=== PATIENT | male | born 1995 | race Caucasian/White ===

== ENCOUNTER 2021-03-19 16:08 | Outpatient (REF) | payer OTHER, SELFPAY ==
--- NOTE | ~2021-03-19 | XR_ITS ---
EXAMINATION: RIGHT ANKLE AND RIGHT FOOT. CLINICAL INFORMATION: Injury right foot and right ankle area. COMPARISON: None TECHNIQUE: 3 views right foot. 2 views right ankle. FINDINGS: Right ankle: There is no visible acute fracture or dislocation. The ankle mortise and subtalar joints are normal. There is mild dorsal talonavicular spurring. The soft tissues are normal. Right foot: There is no visible acute fracture, dislocation or subluxation. The soft tissues are normal. XR/XR ankle RT min 3V IMPRESSION: Unremarkable right ankle and right foot exam except for mild dorsal talonavicular spurring.
--- NOTE | ~2021-03-19 | XR_ITS ---
EXAMINATION: RIGHT ANKLE AND RIGHT FOOT. CLINICAL INFORMATION: Injury right foot and right ankle area. COMPARISON: None TECHNIQUE: 3 views right foot. 2 views right ankle. FINDINGS: Right ankle: There is no visible acute fracture or dislocation. The ankle mortise and subtalar joints are normal. There is mild dorsal talonavicular spurring. The soft tissues are normal. Right foot: There is no visible acute fracture, dislocation or subluxation. The soft tissues are normal. XR/XR foot RT min 3V IMPRESSION: Unremarkable right ankle and right foot exam except for mild dorsal talonavicular spurring.
== END 2021-03-19 16:09 | disposition home or self-care (01) ==
LOC: HO.HMGCX 16:08
PROVIDERS: Visit Provider Physician Assistant Medical
DX: S99.921A Unspecified injury of right foot, initial encounter (principal)
CPT/HCPCS: 73610; 73630

== ENCOUNTER 2021-04-03 08:43 | Outpatient (REF) | payer OTHER, SELFPAY | END 2021-04-03 08:44 | disposition home or self-care (01) | LOC: HO.HOSX 08:43 | PROVIDERS: Visit Provider Physician Assistant | DX: Z13.89 Encounter for screening for other disorder (principal) ==

== ENCOUNTER 2022-09-06 12:55 | Emergency (ER) | payer OTHER, SELFPAY ==
[2022-09-06 12:59] VITALS: BP 115/73; PULSE 64; RESP 16; O2SAT 98; BMI 32.9
--- NOTE | 2022-09-06 13:05 | ED.GENADULT ---
HPI - General Adult General Chief complaint: Wound/Laceration Stated complaint: R Finger Injury Time Seen by Provider: 09/06/22 12:57 Source: patient Mode of arrival: ambulatory Limitations: no limitations History of Present Illness HPI narrative: Patient is a 26 year old assigned male at with no reported medical history presenting to the emergency department today with a right index finger laceration. Patient states that he was golfing when his club broke and cut his right index finger. Patient states that he does not know when his last tetanus shot was. Patient denies any dizziness, lightheadedness, abdominal pain, nausea, vomiting, fever, chills, blurry vision, double vision, loss of vision, chest pain, difficulty breathing, shortness of breath, back pain, night sweats, pain with urination, increased urinary frequency, increased urinary urgency, blood in his urine or stool, syncope or a near syncopal episode, bowel incontinence, bladder incontinence, bowel retention, bladder retention, or any other complaints at this time. Onset (ago): minute(s) Location: right and upper extremity Radiation: non-radiation Severity: mild Severity scale (1-10): 3 Relieving factors: none Exacerbating factors: none Associated symptoms: denies other symptoms Treatments prior to arrival: none Related Data Previous Rx's Medication Instructions Recorded cephalexin 500 mg capsule 500 mg PO Q6H 7 days #28 caps 09/06/22 Allergies Allergy/AdvReac Type Severity Reaction Status Date / Time No Known Allergies Allergy Verified 03/19/21 15:46 Review of Systems Constitutional: Constitutional: Reports no additional constitutional complaints, Denies chills, Denies fever(s) and Denies night sweats Eyes: Eyes: Reports no additional eye complaints, Denies blurry vision, Denies change in vision, Denies diplopia, Denies eye discharge, Denies loss of vision and Denies eye pain ENT: Denies dizziness Cardiovascular: Cardiovascular: Reports no additional cardiovascular complaints, Denies chest pain, Denies lightheadedness, Denies Loss of Consciousness and Denies dyspnea Respiratory: Respiratory: Reports no additional respiratory complaints and Denies dyspnea Gastrointestinal: Gastrointestinal: Reports no additional gastrointestinal complaints, Denies abdominal pain, Denies melena, Denies hematochezia, Denies change in bowel habits and Denies change in stool character Genitourinary: Genitourinary: Reports no additional male genitourinary complaints, Denies hematuria, Denies oliguria, Denies difficulty urinating, Denies dysuria, Denies urinary frequency, Denies urinary hesitancy, Denies urinary incontinence and Denies urinary urgency Musculoskeletal: Musculoskeletal: Reports no additional musculoskeletal complaints, Denies numbness and Denies tingling Integumentary/Breasts: Comments: right index finger laceration Neurologic: Denies dizziness, Denies loss of vision, Denies numbness and Denies tingling Psychiatric: Psychiatric: Reports no additional psychiatric complaints Endocrine: Endocrine: Reports no additional endocrine complaints Hematologic/Lymphatic: Hematologic/Lymphatic: Reports no additional hematologic/lymphatic complaints Allergic/Immunologic: Allergic/Immunologic: Reports no additional allergic/immunologic complaints [facility] Past Medical History Attestation statement: The following information was validated with the patient. Source: old records reviewed and nursing notes reviewed Social History Social History Patient Tobacco Use Status: Never used Tobacco Advance Directives: No Advance Directives Information Provided: No Physical Exam ED Vital Signs: Vital Signs - 24 hr 09/06/22 12:59 Pulse Rate 64 Respiratory Rate 16 Blood Pressure 115/73 Pulse Oximetry 98 Oxygen Delivery Method Room Air BMI result Body Mass Index 32.9 Const General: cooperative, no acute distress, alert and awake Nutritional Appearance: well nourished Orientation/consciousness: patient oriented x3 Limitations: no limitations HENMT Head: Yes normal to inspection and Yes atraumatic Ears: hearing grossly normal bilaterally and external ears normal General nose exam: Normal external nose present, no nasal discharge noted and no epistaxis Face and sinus: Yes normal facial exam, No abrasion and No laceration Mouth: Normal oral and palatal mucosa present, no drooling and no muffled voice Eyes General: appearance normal, both eyes and all related structures Periorbital: periorbital findings normal Eyelids: Yes eyelids normal Conjunctivae: conjunctivae normal Pupils: Equal, round and reactive pupils present EOM: EOMs intact bilaterally Neck Neck: Yes normal visual inspection, Yes full ROM and Yes no lymphadenopathy Chest Chest palpation & inspection: normal inspection of the chest Resp Effort & Inspection: normal respiratory effort and able to speak in complete sentences GI Inspection: Yes normal to inspection Neuro General: patient oriented x3 and moves all extremities Cranial nerves: Yes Equal, round and reactive pupils present Cognition (Neuro): normal cognition Motor exam (neuro): 5/5 motor strength present throughout Sensory Exam: Normal double simultaneous stimulation for sensation Coordination: [id number] test normal Extrem General: Yes full ROM and Yes capillary refill normal Hand/finger images: 1. 4cm laceration, no active bleeding Psych Appearance: grossly normal Mental Status: mental status grossly normal Affect: normal affect Attitude: cooperative Thought process: Normal thought process present Thought content: Normal thought content present Insight: Good insight present (Psych) Medications Administered Discontinued Medications Generic Name Dose Route Start Last Admin Trade Name Fregenesis PRN Reason Stop Dose Admin Diphtheria/Tetanus/Acell Pertussis 0.5 ml 09/06/22 13:05 09/06/22 13:18 Diphth,Pertus(Acell),Tet Adult 0.5 Ml Syringe IM 09/06/22 13:06 0.5 ml .ONCE ONE Administration Lidocaine HCl 15 ml 09/06/22 13:05 09/06/22 13:21 Lidocaine Hcl 1 % Mpf 5 Ml Vial SUBCUT 09/06/22 13:06 15 ml ONCE ONE Administration Procedures Laceration Laceration 1: Site: other (index finger) Side (If applicable): right Size (cm): 4 Description: flap and irregular Depth: simple, single layer Local Anesthetic: lidocaine 1% Amount of anesthesia used (mL): 5 Pre-repair: wound explored, irrigated extensively, deep structures intact and extensive debridement Skin layer closed with: other (proelene) Size (cm): 5-0 Number of sutures: 12 Technique: simple, interrupted Medical Decision Making Medical Decision Making MDM Narrative: Patient is a 26 year old assigned male at with no reported medical history presenting to the emergency department today with a right index finger laceration. Patient's physical exam showed a 4cm laceration to the right index finger with no active bleeding I explained my physical exam findings to the patient. I answered all questions asked by the patient. Patient's laceration was repaired, per procedure note, without incident. Patient's PMS was intact prior to and after repair. I stressed the importance of the patient NOT soaking the repaired area. I stressed the importance of the patient performing daily dressing changes and wound checks. I stressed the importance of the patient having his sutures removed in 7-10 days. I stressed the importance of the patient taking his medication as prescribed. I stressed the importance of the patient following up with his primary care provider. I stressed the importance of the patient returning to the emergency department immediately if his symptoms were to worsen or if he were to develop any dizziness, shortness of breath, difficulty breathing, chest pain, blurry vision, loss of vision, nausea, vomiting, abdominal pain, fever, chills, back pain, or any other complaints. Patient verbalized agreement and understanding with this treatment plan and discharge. Differential Diagnosis Differential Diagnoses: The differential diagnosis associated with the presentation includes right index finger laceration Discharge Plan Discharge Clinical Impression: Laceration Patient Disposition: Home, Self-Care Instructions: Care For Your Stitches (DC) Additional Instructions: Your prescription got sent to [facility] [place]. Please take all of your antibiotics as written. Have your sutures removed in 7-10 days. Do NOT soak the area. Perform daily dressing changes and wound checks. Follow up with your primary care provider. Return to the emergency department immediately if your symptoms worsen or if you develop any dizziness, shortness of breath, difficulty breathing, chest pain, blurry vision, loss of vision, nausea, vomiting, abdominal pain, fever, chills, back pain, or any other complaints. Prescriptions: New cephalexin 500 mg capsule 500 mg PO Q6H 7 Days Qty: 28 0RF Referrals: [facility] [place]] (Call to establish and follow up with a primary care provider. If you already have a primary care provider, please follow up with them.) [facility] (Call to establish and follow up with a primary care provider. If you already have a primary care provider, please follow up with them.) [facility] [[place] Group] (Call to establish and follow up with a primary care provider. If you already have a primary care provider, please follow up with them.) Print Language: Montserratian
[2022-09-06] MEDS: Diphth,Pertus(ACell),Tet Adult 0.5 ML SYRINGE IM (13:18)
[2022-09-06] MEDS: Lidocaine HCl 1 % MPF 5 ML VIAL 15 ML SUBCUT (13:21)
--- NOTE | 2022-09-06 14:00 | PC.NURSE ---
Patient presents for evaluation of laceration to right pointer finger. Patient was golfing today when the club snapped and cut his finer. Laceration noted and is bleeding, patient to get stitches.
[2022-09-06 14:57] VITALS: BP 124/71; PULSE 56; RESP 16; O2SAT 96
--- NOTE | 2022-09-06 14:59 | PC.NURSE ---
Patient presents for evaluation of laceration to right pointer finger. Patient was golfing and when he swung the club it broke in his hand and cut his finger. Patient with deep laceration to finger that is bleeding.
== END 2022-09-06 15:03 | disposition home or self-care (01) ==
PROVIDERS: Emergency Provider Emergency Medicine
DX: S61.210A Laceration without foreign body of right index finger without damage to nail, initial encounter (principal); M79.641 Pain in right hand; W26.9XXA Contact with unspecified sharp object(s), initial encounter; Y93.53 Activity, golf; Y92.9 Unspecified place or not applicable; Y99.9 Unspecified external cause status; Z79.899 Other long term (current) drug therapy; Z23 Encounter for immunization
CPT/HCPCS: 12042; 90471; 90715; 99284

== ENCOUNTER 2022-09-07 18:51 | Emergency (ER) | payer OTHER, SELFPAY ==
[2022-09-07 18:53] VITALS: BP 144/76; PULSE 58; RESP 18; TEMP 36.9; O2SAT 97; BMI 25.7
--- NOTE | 2022-09-07 18:57 | ED_ITS ---
HPI - Skin/Abscess/Foreign Bdy General Chief complaint: Wound/Laceration Stated complaint: needs stitches Time Seen by Provider: 09/07/22 18:57 Source: patient Mode of arrival: ambulatory Limitations: no limitations History of Present Illness HPI narrative: 26-year-old male [id number] here with laceration with sutures present to the right index finger which replaced yesterday here at [facility] er ER. Patient is concerned because there is some oozing from the site and some of the sutures seem to be misplaced. Went to urgent care and referred into the ER for further evaluation. No fevers, chills, numbness, tingling, weakness Related Data Previous Rx's Medication Instructions Recorded cephalexin 500 mg capsule 500 mg PO Q6H 7 days #28 caps 09/06/22 Allergies Allergy/AdvReac Type Severity Reaction Status Date / Time No Known Allergies Allergy Verified 03/19/21 15:46 Review of Systems Review of Systems: Yes all other systems are reviewed and are negative Constitutional: Constitutional: Reports no additional constitutional complaints, Denies body ache(s), Denies chills, Denies fever(s), Denies headache(s) and Denies weakness Eyes: Eyes: Reports no additional eye complaints and Denies change in vision ENT: Reports system reviewed and no additional complaints, except as documented, Denies dizziness, Denies headache(s), Denies nasal congestion, Denies nasal discharge and Denies neck pain Cardiovascular: Cardiovascular: Reports no additional cardiovascular complaints, Denies chest pain, Denies leg edema and Denies dyspnea Respiratory: Respiratory: Reports no additional respiratory complaints, Denies cough and Denies dyspnea Gastrointestinal: Gastrointestinal: Reports no additional gastrointestinal complaints, Denies abdominal pain, Denies diarrhea, Denies nausea and Denies vomiting Genitourinary: Genitourinary: Denies urinary incontinence Musculoskeletal: Musculoskeletal: Reports no additional musculoskeletal complaints, Denies back pain, Denies arthralgias, Denies joint swelling, Denies neck pain, Denies numbness and Denies tingling Integumentary/Breasts: Skin/Breast: Reports system reviewed and no additional complaints, except as docu and Denies rash Neurologic: Reports system reviewed and no additional complaints, except as documented, Denies Abnormal speech present, Denies dizziness, Denies headache(s), Denies numbness, Denies tingling and Denies weakness [facility] Past Medical History Attestation statement: The following information was validated with the patient. Source: old records reviewed and nursing notes reviewed Social History Social History Alcohol intake: never Patient Tobacco Use Status: Never used Tobacco Physical Exam Vital Signs: Vital Signs: Last Vital Signs Temp 98.5 F 09/07/22 18:53 Pulse 58 09/07/22 18:53 Resp 18 09/07/22 18:53 BP 144/76 H 09/07/22 18:53 Pulse Ox 97 09/07/22 18:53 O2 Del Method Room Air 09/07/22 18:53 BMI result Body Mass Index 25.7 Const: General: cooperative, healthy appearing, comfortable and no acute distress Orientation/consciousness: patient oriented x3 Limitations: no limitations HEENT: Head: Yes normal to inspection Ears: hearing grossly normal bilaterally General nose exam: Normal external nose present Face and sinus: Yes normal facial exam Mouth: Normal oral and palatal mucosa present Throat: Yes posterior oropharynx normal Eyes: General: appearance normal, both eyes and all related structures Pupils: Equal, round and reactive pupils present Neck: Neck: Yes normal visual inspection Chest: Chest palpation & inspection: normal inspection of the chest Resp: Effort & Inspection: normal respiratory effort Auscultation: clear to auscultation bilaterally Cardio: Rate: regular rate Rhythm: regular rhythm Peripheral pulses: Peripheral pulses 2+ throughout GI: Inspection: Yes normal to inspection Palpation (GI): Soft to palpation and nontender Auscultation: normal bowel sounds Back/Spine/Pelvis: Thoracic/Lumbar Spine: thoracic and lumbar spine normal to inspection Skin: General skin exam: no rashes or lesions noted Neuro: General: patient oriented x3, no focal motor deficits and normal sensation to monofilament Cranial nerves: Yes Equal, round and reactive pupils present Cognition (Neuro): normal cognition Speech: No Abnormal speech present Gait exam (Neuro): Normal gait present Motor exam (neuro): 5/5 motor strength present throughout Extrem: Other: To the right index finger on the medial aspect there is the laceration present- edges are approximated-12 sutures present Patient able to flex/extend with no difficulty No redness, swelling, drainage noted General: Yes normal to inspection Medical Decision Making Medical Decision Making MDM Narrative: 26-year-old male here for wound check. Patient reports he had 12 sutures placed to the right index finger yesterday and is concerned because there is some oozing from the wound and some of the sutures seem to be misplaced. On exam the patient has 12 sutures present in the right index finger. There is slight bleeding noted but no signs of infection. All sutures are present. Reinforced that the wound is healing well. Patient did continue wound care at home. He should continue his antibiotics. Reviewed worrisome signs and symptoms of when to return to the emergency room. Comfortable plan for discharge home. Discharge Plan Discharge Clinical Impression: Laceration Patient Disposition: Home, Self-Care Instructions: Finger Laceration (ED) Additional Instructions: Continue the antibiotics Leave the wound open to air unless you are working or doing anything that is contaminated Suture should be removed in 7-10 days from when they were placed Prescriptions: No Action cephalexin 500 mg capsule 500 mg PO Q6H 7 Days Qty: 28 0RF Interventions: ED Discharge Assessment Last Done: 09/07/22 19:06
== END 2022-09-07 19:10 | disposition home or self-care (01) ==
LOC: HO.ED 19:08
PROVIDERS: Emergency Provider Emergency Medicine
DX: Z48.00 Encounter for change or removal of nonsurgical wound dressing (principal)
CPT/HCPCS: 99282